=== PATIENT | female | born 1955 | race Two or more races ===

== ENCOUNTER 2016-07-09 20:41 | Emergency (ER) | payer BC ==
[~2016-07-09] VITALS: Ht 157.5 cm; Wt 76.2 kg
--- NOTE | 2016-07-09 21:44 | Emergency Room Report ---
History of Present Illness General Chief Complaint: Fever Source: Patient Present Illness HPI This is a 60-year-old female with past medical history of breast cancer and is currently under remission. She presents with chief complaint of generalized body pain and fever. Onset for 3 days now. Pain is 10 out of 10. No cough or congestion. No nausea no vomiting. No abdominal pain. No urinary complaint. Has not take anything other than [id number] medication for this. Did not get her flu shot this year. Allergies: Coded Allergies: No Known Allergies (Unverified , 11/17/14) Patient History Past Medical History: see triage record, old chart reviewed Past Surgical History: other Pertinent Family History: none Social History: Denies: smoking Last Menstrual Period: 2011 Now: No : 2 Para: 2 Immunizations: other Reviewed Nursing Documentation: PMH: Agreed, PSxH: Agreed Nursing Documentation-PMH Past Medical History: No History, Except For Hx Cancer: Yes - right breast CA 2013 Review of Systems Constitutional: Reports: fever, malaise, weakness Eye: Denies: blurred vision, eye pain ENT: Denies: ear pain, nose congestion, throat swelling Respiratory: Denies: cough, shortness of breath Cardiovascular: Denies: chest pain, palpitations Gastrointestinal: Denies: abdominal pain, diarrhea, nausea, vomiting Musculoskeletal: Denies: back pain, joint pain Skin: Denies: rash Neurological: Denies: headache, numbness Endocrine: Denies: increased thirst, increased urine Hematologic/Lymphatic: Denies: easy bruising All Other Systems: negative except mentioned in HPI Physical Exam Vital Signs Date Time Temp Pulse Resp B/P Pulse Ox O2 Delivery O2 Flow Rate FiO2 07/09/16 21:00 102.7 97 20 109/74 96 Room Air vitals with fever Sp02 EP Interpretation: reviewed, normal General Appearance: well appearing, no apparent distress, alert Head: normocephalic, atraumatic Eyes: bilateral eye EOMI, bilateral eye PERRL ENT: hearing grossly normal, normal pharynx Neck: full range of motion, supple, no meningismus Respiratory: chest non-tender, lungs clear, normal breath sounds Cardiovascular #1: regular rate, rhythm, no murmur Gastrointestinal: normal bowel sounds, non tender, no mass, no organomegaly, no bruit, non-distended Musculoskeletal: back normal, gait/station normal, normal range of motion Psychiatric: mood/affect normal Skin: warm/dry Medical Decision Making Diagnostic Impression: Primary Impression: UTI (urinary tract infection) Qualified Codes: N30.00 - Acute cystitis without hematuria Additional Impression: Fever Qualified Codes: R50.9 - Fever, unspecified ER Course Patient present with fever and generalized myalgia. Most likely influenza-like illness. She also has a urinary tract infection. We'll going to treat that. No evidence of sepsis, pneumonia, acute abdomen or pyelonephritis. She felt better now. We'll discharge home. Lab Results Impression labs unremarkable Chest X-Ray Diagnostic Results EP Interpretation: Yes Findings: no consolidation, no effusion, no pneumothorax, no acute cardiopulmonary disease Number of Views: 1 Last Vital Signs Date Time Temp Pulse Resp B/P Pulse Ox O2 Delivery O2 Flow Rate FiO2 07/09/16 21:00 102.7 97 20 109/74 96 Room Air Status: improved Disposition: HOME, SELF-CARE Condition: Stable Scripts Ibuprofen* (MOTRIN*) 600 Mg Tablet 600 MG ORAL THREE TIMES A DAY, #30 TAB 0 Refills Prov: RAMAKRISHNA RUELAS M.D. 07/09/16 Cephalexin* (KEFLEX*) 500 Mg Capsule 500 MG ORAL TID, #21 CAP 0 Refills Prov: RAMAKRISHNA RUELAS M.D. 07/09/16 Patient Instructions: Fever, Adult, [id number] Additional Instructions: Followup with your DrChuck in 2-3 days. Return if symptom worsen. RAMAKRISHNA RUELAS M.D. Jul 09, 2016 21:44
[2016-07-09] MEDS: Ketorolac 30mg Inj IV ONE ×2 (21:45→22:29)
[2016-07-09] MEDS ORDERED: Acetaminophen 500mg (ES) tab ORAL ONE (21:45)
[2016-07-09 22:21] LABS: APPEARANCE,URINE CLEAR; KETONES,URINE NEGATIVE (NEGATIVE); LEUKOCYTE ESTERASE ,URINE NEGATIVE (NEGATIVE); NITRITE,URINE NEGATIVE (NEGATIVE); PROTEIN,URINE NEGATIVE (NEGATIVE); UROBILINOGEN,URINE NORMAL MG/DL (0.0-1.0)
[2016-07-09 22:31] LABS: RBC,URINE 0-2 /HPF (0 - 2); SQUAMOUS EPITHELIAL CELL,UR FEW /LPF (NONE/OCC)
[2016-07-09 22:32] LABS: AMORPHOUS SEDIMENT,UR MANY /LPF; BACTERIA,URINE MODERATE /HPF
[2016-07-09] MEDS ORDERED: cefTRIAXone 1 GM in NS 55 ML IVPB ONE (23:00)
[2016-07-09 23:09] LABS: BASOPHILS % (AUTO) 1.6 % (0.0-2.0); EOSINOPHILS % (AUTO) 0.1 % (0.0-3.0); LYMPHOCYTES % (AUTO) 24.8 % (20.0-45.0); MEAN CORPUSCULAR HEMOGLOBIN 28.3 PG (27.0-31.0); MEAN CORPUSCULAR HGB CONC 31.8 G/DL (32.0-36.0); MEAN CORPUSCULAR VOLUME 89 FL (80-99); MEAN PLATELET VOLUME 8.4 FL (6.5-10.1); MONOCYTES % (AUTO) 14.9 % (1.0-10.0); NEUTROPHILS % (AUTO) 58.6 % (45.0-75.0); PLATELET COUNT 134 K/UL (150-450); RED BLOOD COUNT 4.74 M/UL (4.20-5.40); RED CELL DISTRIBUTION WIDTH 12.5 % (11.6-14.8); WHITE BLOOD COUNT 5.8 K/UL (4.8-10.8)
[2016-07-09 23:15] VITALS: BP 110/75
[2016-07-09 23:28] LABS: ALANINE AMINOTRANSFERASE 25 U/L (3-33); ASPARTATE AMINO TRANSFERASE 37 U/L (5-40); CALCIUM 8.6 mg/dL (8.6-10.2); CARBON DIOXIDE 21 mEQ/L (20-30); CREATININE 0.8 mg/dL (0.5-0.9); GLOMERULAR FILTRATION RATE > 60 mL/min (>60); TOTAL PROTEIN 6.8 g/dL (6.6-8.7)
[2016-07-09 23:29] LABS: ALBUMIN/GLOBULIN RATIO 1.4 (1.0-2.7); ANION GAP 19 (5-15); CHLORIDE 95 mEQ/L (98-107); HEMOLYSIS 134; POTASSIUM 4.7 mEQ/L (3.4-4.9); SODIUM 135 mEQ/L (135-145)
[2016-07-09] MEDS ORDERED: Cephalexin 500mg cap ORAL ONE (23:30)
[2016-07-09] MEDS ORDERED: KEFLEX500 MG ORAL (23:49)
[2016-07-09] MEDS ORDERED: IBUPROFEN600 MG ORAL (23:49)
[2016-07-09 23:55] VITALS: BP 111/75
--- NOTE | 2016-07-10 12:40 | Diagnostic Imaging Report ---
Indication: SOB, fever, cough Technique: One view of the chest Comparison: none Findings: Lungs and pleural spaces are clear. Heart size is normal. Impression: No acute process
== END 2016-07-09 23:55 | disposition home or self-care (01) ==
LOC: EMR 20:50
DX: N39.0 Urinary tract infection, site not specified (principal); Z85.3 Personal history of malignant neoplasm of breast
CPT/HCPCS: 36415; 71010; 80053; 81003; 83605; 85025; 86710; 87040; 87086; 96374